=== PATIENT | female | born 1965 | race Caucasian/White ===

== ENCOUNTER → 2018-07-26 12:01 | Emergency (ER) | payer BC ==
[2018-07-26 12:58] VITALS: BP 108/75
--- NOTE | 2018-07-26 13:42 | UC ---
Knee Pain HPI - HPI Summary HPI Summary: Pt c/o right lateral knee swelling and incision site from meniscus repair surgery 3 weeks ago. Pt was seen by orthopedic provider on 07/23/18 to have sutures removed. Pt presetns today with worsening pain to right medial aspect of knee with weight bearing activity. Pt has c/o of clear, thick yellow "fluid " nate spontaeously drains form right lateral aspect of knee. Denies pain at incision site, erythema, tenderness, purulent discharge, fever or chills. - History of Current Complaint Chief Complaint: UCSkin Stated Complaint: RIGHT KNEE CONCERN Time Seen by Provider: 07/26/18 13:18 Hx Obtained From: Patient Hx Last Menstrual Period: 3 WKS AGO ?: No Onset/Duration: Sudden Onset, Lasting Days, Still Present Severity Initially: Mild Severity Currently: Moderate Pain Intensity: 6 Character: Dull, Aching Aggravating Factor(s): Weight Bearing, Prolonged Standing, Stairs Alleviating Factor(s): Rest Associated Signs And Symptoms: Positive: Swelling, Numbness Able to Bear Weight: Yes - Risk Factors Septic Arthritis Risk Factor: Negative Gout Risk Factor: Negative - Allergies/Home Medications Allergies/Adverse Reactions: Allergies Allergy/AdvReac Type Severity Reaction Status Date / Time Penicillins Allergy Hives Verified 07/26/18 12:48 sweet potato Allergy Swelling Verified 07/26/18 12:49 Of Face,Lips,& Throat Home Medications: Home Medications Levothyroxine TAB* [Synthroid TAB*] 88 mcg PO DAILY 07/26/18 [History Confirmed 07/26/18] Sertraline* [Zoloft*] 25 mg PO DAILY 07/26/18 [History Confirmed 07/26/18] PMH/Surg Hx/FS Hx/Imm Hx Previously Healthy: Yes - Surgical History Surgical History: Yes Surgery Procedure, Year, and Place: 2 C-SECTS. TONSILS. R meniscal - Family History Known Family History: Positive: Cardiac Disease - Social History Occupation: Employed Full-time Lives: With Family Alcohol Use: Occasionally Substance Use Type: None Smoking Status (MU): Never Smoked Tobacco Type: Cigarettes Amount Used/How Often: 2 CIGS PER MONTH Length of Time of Smoking/Using Tobacco: 30 YRS Have You Smoked in the Last Year: Yes - Immunization History Vaccination Up to Date: Yes Review of Systems Constitutional: Negative Skin: Other - healing incisions Eyes: Negative ENT: Negative Respiratory: Negative Cardiovascular: Negative Gastrointestinal: Negative Genitourinary: Negative Motor: Negative Neurovascular: Negative Musculoskeletal: Edema - at right lateral incision site, anterior right knee, soft, non tender, moveable Neurological: Negative Psychological: Negative Is Patient Immunocompromised?: No All Other Systems Reviewed And Are Negative: Yes Physical Exam Triage Information Reviewed: Yes Appearance: Well-Appearing Vital Signs: Initial Vital Signs Temp 98.3 F 07/26/18 12:51 Pulse 93 07/26/18 12:51 Resp 14 07/26/18 12:51 BP 108/75 07/26/18 12:51 Pulse Ox 98 07/26/18 12:51 Vital Signs Reviewed: Yes Eye Exam: Normal ENT Exam: Normal ENT: Positive: Hearing grossly normal Dental Exam: Normal Neck exam: Normal Respiratory Exam: Normal Musculoskeletal: Positive: Strength Intact, ROM Intact, Other: - healing inciosn ~ 1 cm in length anterior right knee right, lateral incision, mild erytheam around incision, pt states that her knee in that area in numb, clear, yellow somewhat viscous fluid drain from incision site. Pt denied pain at site Neurological Exam: Normal Psychological Exam: Normal Skin Exam: Other - heling incisons right anterior knee medial aspect and lateral aspect of distal knee Knee Pain Course/Dx - Course Course Of Treatment: I spoke with academy education director PA from DR. herrera office. PA was recommended to make appointment for Friday for f/u. I instructed the pt that if swelling worsened or if she developed worsening erythema, fever or chills to go directly to ER. - Differential Dx/Diagnosis Differential Diagnosis/HQI/PQRI: Infection Provider Diagnoses: infected surgical site. draining wound Discharge - Sign-Out/Discharge Documenting (check all that apply): Patient Departure All imaging exams completed and their final reports reviewed: No Studies - Discharge Plan Condition: Stable Disposition: HOME Patient Education Materials: Acute Wound Care (ED), Surgical Site Infections ( ED) Referrals: Ning Caro PA [Primary Care Provider] - Jorge Denson MD [Medical Doctor] - As Soon As Possible - Billing Disposition and Condition Condition: STABLE Disposition: Home - Attestation Statements Provider Attestation: I was available for consult. This patient was seen by the [facility]. The patient was not presented to, seen by, or examined by me. -Santiago
== END | disposition home or self-care (01) ==
LOC: UCCORT 12:01
DX: T81.49XA Infection following a procedure, other surgical site, initial encounter (principal); Z88.0 Allergy status to penicillin; F17.210 Nicotine dependence, cigarettes, uncomplicated
CPT/HCPCS: 87070; 87205

== ENCOUNTER 2019-12-19 15:54 | Emergency (ER) | payer BC ==
[2019-12-19 16:20] VITALS: BP 113/70
--- NOTE | 2019-12-19 16:29 | UC ---
Throat Pain/Nasal Ricco HPI - HPI Summary HPI Summary: 54-year-old female presents with 2 day history of sore throat. Associated with some fatigue. Denies fever, chills, nasal congestion, ear pain, dysphagia, chest pain, shortness of breath, cough, abdominal pain, nausea, or vomiting. - History of Current Complaint Chief Complaint: UCGeneralIllness Stated Complaint: SORE THROAT Time Seen by Provider: 12/19/19 16:17 Hx Obtained From: Patient Hx Last Menstrual Period: 3 WKS AGO Pain Intensity: 6 - Allergies/Home Medications Allergies/Adverse Reactions: Allergies Allergy/AdvReac Type Severity Reaction Status Date / Time Penicillins Allergy Hives Verified 12/19/19 16:20 sweet potato Allergy Swelling Verified 12/19/19 16:20 Of Face,Lips,& Throat Home Medications: Home Medications Amitriptyline TAB* [Elavil TAB*] 3 tab PO BEDTIME 01/15/15 [History Confirmed ] Levothyroxine TAB* [Synthroid TAB*] 88 mcg PO DAILY 07/26/18 [History Confirmed 12/19/19] Sertraline* [Zoloft*] 25 mg PO DAILY 07/26/18 [History Confirmed 12/19/19] PMH/Surg Hx/FS Hx/Imm Hx Endocrine History: Thyroid Disease Psychological History: Depression - Surgical History Surgical History: Yes Surgery Procedure, Year, and Place: 2 C-SECTS. TONSILS. R meniscal - Family History Known Family History: Positive: Cardiac Disease - Social History Occupation: Employed Full-time Lives: With Family Alcohol Use: Occasionally Substance Use Type: None Smoking Status (MU): Never Smoked Tobacco Type: Cigarettes Amount Used/How Often: 2 CIGS PER MONTH Length of Time of Smoking/Using Tobacco: 30 YRS Have You Smoked in the Last Year: Yes - Immunization History Vaccination Up to Date: Yes Review of Systems All Other Systems Reviewed And Are Negative: Yes Constitutional: Negative: Fever, Chills Skin: Negative: Rash ENT: Positive: Sore Throat. Negative: Ear Ache, Nasal Discharge, Sinus Congestion, Sinus Pain/Tenderness Respiratory: Negative: Shortness Of Breath, Cough Cardiovascular: Positive: Negative Gastrointestinal: Negative: Abdominal Pain, Vomiting, Nausea Genitourinary: Positive: Negative Musculoskeletal: Positive: Negative Neurological/Mental Status: Positive: Negative Is Patient Immunocompromised?: No Physical Exam - Summary Physical Exam Summary: GENERAL APPEARANCE: Well developed, well nourished, alert and cooperative, and appears to be in no acute distress. EYES: Conjunctiva clear. No drainage. EARS: External auditory canals and tympanic membranes clear, hearing grossly intact. NOSE: No nasal discharge. THROAT: Pharyngeal erythema. No tonsilar inflammation, swelling, exudate, or lesions. Uvula midline. NECK: Neck supple, non-tender without lymphadenopathy. CARDIAC: Normal S1 and S2. No S3, S4 or murmurs. Rhythm is regular. There is no peripheral edema, cyanosis or pallor. Extremities are warm and well perfused. Capillary refill is less than 2 seconds. Peripheral pulses intact. LUNGS: Clear to auscultation without rales, rhonchi, wheezing or diminished breath sounds. ABDOMEN: Positive bowel sounds. Soft, nondistended, nontender. No guarding or rebound. No masses or hepatosplenomegally. MUSKULOSKELETAL: ROM intact to all extremities. No joint erythema or tenderness. Normal muscular development. Normal gait. SKIN: Skin normal color, texture and turgor with no lesions or eruptions. Triage Information Reviewed: Yes Vital Signs: Initial Vital Signs Temp 97.7 F 12/19/19 16:16 Pulse 82 12/19/19 16:16 Resp 14 12/19/19 16:16 BP 113/70 12/19/19 16:16 Pulse Ox 100 12/19/19 16:16 Vital Signs Reviewed: Yes Throat Pain/Nasal Course/Dx - Course Course Of Treatment: 54-year-old female presents with 2 day history of sore throat. Associated with some fatigue. Denies fever, chills, nasal congestion, ear pain, dysphagia, chest pain, shortness of breath, cough, abdominal pain, nausea, or vomiting. Afebrile. Vital signs stable. Patient had no nasal congestion, normal TMs, pharyngeal erythema without tonsillar swelling or exudate, no cervical lymphadenopathy, clear bilateral breath sounds, and otherwise unremarkable exam. Rapid strep test was negative. Reviewed results with the patient. Recommending symptomatic treatment for viral pharyngitis. She is to follow-up with her primary care provider in 5-7 days if symptoms are not improving. Anticipatory guidance warning signs reviewed with the patient. Verbalizes understanding and agrees to plan of care. - Differential Dx/Diagnosis Differential Diagnosis/HQI/PQRI: Influenza, Peritonsillar Abscess, Pharyngitis, Tonsillitis, URI Provider Diagnosis: Acute viral pharyngitis Discharge ED - Sign-Out/Discharge Documenting (check all that apply): Patient Departure All imaging exams completed and their final reports reviewed: No Studies - Discharge Plan Condition: Stable Disposition: HOME Patient Education Materials: Pharyngitis (ED) Referrals: Ning Caro PA [Primary Care Provider] - 5 Days Additional Instructions: Your rapid strep test in the clinic today was negative. Your symptoms are likely from a viral infection. Viral infections do not respond to antibiotics and are limited to the treatment of symptoms. Viral infections typically run their course in 7-10 days. Drink plenty of fluids to avoid dehydration especially if you are running any fever. Use salt water gargles several times a day. Take over the counter acetaminophen (Tylenol) or ibuprofen (Advil, Motrin) according to directions as needed for pain or fever. You may also use Chloraseptic spray or Cepacol lonzenges according to directions which contain a numbing medication and can provide some temporary relief from your sore throat. Return here or follow up with your primary care provider in 5-7 days if symptoms persist. Seek immediate medical attention in the emergency room if you have fever greater than 100.5 F despite taking acetaminophen or ibuprofen, are unable to swallow or develop drooling, are unable to open your mouth fully, are unable to eat or drink, have pain that is not relieved with over the counter pain medication, or have any difficulty breathing. - Billing Disposition and Condition Condition: STABLE Disposition: Home
== END 2019-12-19 16:51 | disposition home or self-care (01) ==
LOC: UCCORT 15:54
DX: J02.9 Acute pharyngitis, unspecified (principal); R53.83 Other fatigue; E07.9 Disorder of thyroid, unspecified; F32.9 Major depressive disorder, single episode, unspecified; Z79.890 Hormone replacement therapy; Z91.018 Allergy to other foods; Z79.899 Other long term (current) drug therapy; Z88.0 Allergy status to penicillin
CPT/HCPCS: 87651; 99211; G0463